=== PATIENT | male | born 1980 | race Caucasian/White ===

== ENCOUNTER 2020-07-04 13:53 | Outpatient (REF) | payer OTHER, SELFPAY | END 2020-07-04 13:54 | disposition home or self-care (01) | LOC: HO.LAB 13:53 | PROVIDERS: Visit Provider Internal Medicine | DX: Z20.828 Contact with and (suspected) exposure to other viral communicable diseases (principal) | CPT/HCPCS: C9803; U0003 ==

== ENCOUNTER 2022-09-21 09:25 | Emergency (ER) | payer OTHER, SELFPAY ==
[2022-09-21 09:44] VITALS: BP 138/84; PULSE 60; RESP 20; TEMP 36.6; O2SAT 97; BMI 21.5
--- NOTE | 2022-09-21 10:21 | ED_ITS ---
HPI - Wound/Laceration General Chief Complaint: Wound/Laceration Stated Complaint: Finger lac/Work inj Time Seen by Provider: 09/21/22 10:04 Source: patient Mode of arrival: ambulatory History of Present Illness HPI narrative: 42-year-old male with no significant past medical history presenting to the ED complaining of laceration to left middle finger s/p using razor blade at work [employer]. Last tetanus unknown. Reports mild paresthesias. Denies injury to other area, weakness Onset (ago): hour(s) Related Data Allergies Allergy/AdvReac Type Severity Reaction Status Date / Time No Known Allergies Allergy Verified 09/21/22 10:28 Review of Systems Review of Systems: Constitutional: No Fever, No Chills ENT/Mouth: No Ear Pain, No Nasal Congestion, No sore throat, No Rhinorrhea, No Swallowing Difficulty Cardiovascular: No Chest Pain, No SOB Respiratory: No Cough, No Sputum Gastrointestinal: No Nausea, No Vomiting, No Diarrhea, No Constipation, No Abdominal pain Genitourinary: No Dysuria, No Urinary Frequency, No Urgency, No Flank Pain Musculoskeletal: No joint pain, No Myalgias, No Joint Swelling Skin: No Skin Lesions, +laceration Neuro: No Weakness, No Numbness, + Paresthesias Yes all other systems are reviewed and are negative Constitutional: Constitutional: Reports as per [facility] Past Medical History Attestation statement: The following information was validated with the patient. Social History Social History Advance Directives: No Advance Directives Information Provided: Yes Physical Exam Vital Signs: Vital Signs: Last Vital Signs Temp 97.9 F 09/21/22 09:44 Pulse 60 09/21/22 09:44 Resp 20 09/21/22 09:44 BP 138/84 09/21/22 09:44 Pulse Ox 97 09/21/22 09:44 O2 Del Method 09/21/22 09:44 BMI result Body Mass Index 21.5 Const: General: cooperative, healthy appearing and no acute distress Orientation/consciousness: patient oriented x3 Limitations: no limitations HEENT: Head: Yes normal to inspection and Yes atraumatic Ears: hearing grossly normal bilaterally General nose exam: Normal external nose present Face and sinus: Yes normal facial exam Eyes: General: appearance normal, both eyes and all related structures EOM: EOMs intact bilaterally Neck: Neck: Yes normal visual inspection and Yes no meningeal signs Resp: Effort & Inspection: normal respiratory effort and no respiratory distress Cardio: Rate: regular rate Peripheral pulses: radial pulses present and ulnar radial pulses present Skin: Rashes: no rashes Neuro: General: patient oriented x3, tone normal and no meningeal signs Gait exam (Neuro): Normal gait present Extrem: Other: +1cm superficial jagged laceration noted to left distal 3rd digit. No nail involvement. Underlying structures appear intact. NV intact. FROM intact General: Yes normal to inspection Medications Administered Discontinued Medications Generic Name Dose Route Start Last Admin Trade Name Freq PRN Reason Stop Dose Admin Diphtheria/Tetanus/Acell Pertussis 0.5 ml 09/21/22 10:28 09/21/22 11:28 Diphth,Pertus(Acell),Tet Adult 0.5 Ml Syringe IM 09/21/22 10:29 0.5 ml .ONCE ONE Administration Lidocaine HCl 5 ml 09/21/22 10:28 09/21/22 11:29 Lidocaine Hcl 1 % Mpf 5 Ml Vial INFILTRATI 09/21/22 10:29 5 ml ONCE ONE Administration Medical Decision Making Medical Decision Making MDM Narrative: 42-year-old male with no significant past medical history presenting to the ED complaining of laceration to left middle finger s/p using razor blade at work [employer]. On exam vital signs stable, NAD, nontoxic, physical exam as above. Low suspicion for nerve or tendon injury. Low suspicion for fracture Plan: Repair wound, update tetanus Please refer to course for remaining clinical decision making, interpretation of labs/imaging results, and discussions with consultants and/or family members. Differential Diagnosis Differential Diagnoses: The differential diagnosis associated with the presentation includes As above Prescription Management I considered prescription management with: Pain Medication and Antibiotic Procedures Laceration Laceration 1: Site: hand Side (If applicable): left Size (cm): 1 Description: irregular Depth: simple, single layer Local Anesthetic: lidocaine 1% Amount of anesthesia used (mL): 3.5 Pre-repair: wound explored and irrigated extensively Skin layer closed with: nylon Size (cm): 5-0 Number of sutures: 3 Technique: simple, interrupted Discharge Plan Discharge Clinical Impression: Finger laceration Patient Disposition: Home, Self-Care Instructions: Finger Laceration (ED) Additional Instructions: Your wounds were repaired today in the emergency department. Keep dry and clean. You need to return to any emergency department, urgent care, or your PCPs office in 7-10 days for suture removal Apply bacitracin and or Neosporin daily Once sutures are removed apply anti scar cream like Mederma If area begins look infected, is red, there is drainage, streaking, or you have fever please return to the emergency department Referrals: Physician,Jami J [Primary Care Provider] - 1 week (For suture removal)
[2022-09-21] MEDS: Diphth,Pertus(ACell),Tet Adult 0.5 ML SYRINGE IM (11:28)
[2022-09-21] MEDS: Lidocaine HCl 1 % MPF 5 ML VIAL INFILTRATI (11:29)
== END 2022-09-21 12:00 | disposition home or self-care (01) ==
PROVIDERS: Emergency Provider Emergency Medicine
DX: S61.213A Laceration without foreign body of left middle finger without damage to nail, initial encounter (principal); W27.8XXA Contact with other nonpowered hand tool, initial encounter; Y93.9 Activity, unspecified; Y92.59 Other trade areas as the place of occurrence of the external cause; Y99.0 Civilian activity done for income or pay
CPT/HCPCS: 12001; 90471; 90715; 99281; 99284

== ENCOUNTER → 2022-09-28 10:42 | Outpatient (BNVA) | payer OTHER, SELFPAY | PROVIDERS: Visit Provider Internal Medicine | DX: S61.213A Laceration without foreign body of left middle finger without damage to nail, initial encounter (principal); W27.8XXA Contact with other nonpowered hand tool, initial encounter; Z48.02 Encounter for removal of sutures | CPT/HCPCS: 99202; 99212 ==

== ENCOUNTER → 2025-01-21 09:19 | Outpatient (BNVA) | payer OTHER, SELFPAY | PROVIDERS: Visit Provider Physician Assistant | DX: S61.212A Laceration without foreign body of right middle finger without damage to nail, initial encounter (principal); W26.9XXA Contact with unspecified sharp object(s), initial encounter | CPT/HCPCS: 12001; 99204 ==

== ENCOUNTER → 2025-01-27 10:15 | Outpatient (BNVA) | payer OTHER, SELFPAY | PROVIDERS: Visit Provider Physician Assistant | DX: Z48.02 Encounter for removal of sutures (principal); S61.212A Laceration without foreign body of right middle finger without damage to nail, initial encounter; W26.9XXA Contact with unspecified sharp object(s), initial encounter; Z02.79 Encounter for issue of other medical certificate | CPT/HCPCS: 99212; 99213 ==